=== PATIENT | male | born 1990 | race Caucasian/White ===

== ENCOUNTER 2017-11-25 11:19 | Emergency (ER) | payer SELFPAY ==
[~2017-11-25] VITALS: Ht 177.8 cm; Wt 72.4 kg
[2017-11-25] MEDS ORDERED: BACTRIM,SEPT1 TABLET PO (13:03)
[2017-11-25 13:24] VITALS: BP 132/85
== END 2017-11-25 13:27 | disposition home or self-care (01) ==
LOC: EME 11:19
DX: L73.9 Follicular disorder, unspecified (principal); F17.200 Nicotine dependence, unspecified, uncomplicated
CPT/HCPCS: 99281; 99283